=== PATIENT | female | born 1970 | race Two or more races ===

== ENCOUNTER 2024-11-17 03:28 | Emergency (ER) | payer OTHER ==
[~2024-11-17] VITALS: Ht 152.4 cm; Wt 77.1 kg
[2024-11-17] MEDS ORDERED: METHYLPREDNISOLONE SOD SUCC 125 MG VIAL ONE (03:52)
[2024-11-17] MEDS ORDERED: DIPHENHYDRAMINE HCL 50 MG/ML VIAL 1ML ONE (03:52)
[2024-11-17] MEDS ORDERED: FAMOTIDINE/PF 20 MG/2 ML VIAL ONE (03:52)
[2024-11-17] MEDS ORDERED: METHYLPREDNISOLONE SOD SUCC 125 MG VIAL IV STA (04:01)
[2024-11-17] MEDS ORDERED: DIPHENHYDRAMINE HCL 50 MG/ML VIAL 1ML IV STA (04:01)
[2024-11-17] MEDS ORDERED: FAMOTIDINE/PF 20 MG/2 ML VIAL IV PUSH STA (04:01)
[2024-11-17] MEDS ORDERED: BENADRYL25 MG PO (05:33)
[2024-11-17] MEDS ORDERED: MEDROL8 MG PO (05:33)
[2024-11-17] MEDS ORDERED: PEPCID40 MG PO (05:33)
== END 2024-11-17 05:46 ==
LOC: ER 03:45
DX: T78.40XA Allergy, unspecified, initial encounter (principal); Z91.013 Allergy to seafood; I10 Essential (primary) hypertension